=== PATIENT | male | born 1995 | race Caucasian/White ===

== ENCOUNTER 2019-01-21 21:51 | Emergency (ER) | payer OTHER ==
[~2019-01-21] VITALS: Ht 180.3 cm; Wt 88.5 kg
[2019-01-21] MEDS ORDERED: IBUPROFEN 800800 MG PO (22:33)
[2019-01-21] MEDS ORDERED: TRAMADOL 50 MG50 MG PO (22:33)
[2019-01-21 23:00] VITALS: BP 145/87
== END 2019-01-21 23:02 | disposition home or self-care (01) ==
LOC: M.ERS 21:51
DX: S83.8X2A Sprain of other specified parts of left knee, initial encounter (principal); X50.1XXA Overexertion from prolonged static or awkward postures, initial encounter; Y93.89 Activity, other specified; Y92.89 Other specified places as the place of occurrence of the external cause; Y99.8 Other external cause status